=== PATIENT | male | born 1995 | race Hispanic/Latino ===

== ENCOUNTER 2021-09-27 09:43 | Emergency (ER) | payer OTHER ==
[~2021-09-27] VITALS: Ht 172.7 cm; Wt 104.3 kg
== END 2021-09-27 11:45 | disposition home or self-care (01) ==
LOC: FSED 10:18
DX: M79.641 Pain in right hand (principal); S60.221A Contusion of right hand, initial encounter; W23.1XXA Caught, crushed, jammed, or pinched between stationary objects, initial encounter; Y92.89 Other specified places as the place of occurrence of the external cause
CPT/HCPCS: 99283

== ENCOUNTER 2023-12-11 22:54 | Emergency (ER) | payer SELFPAY ==
[~2023-12-11] VITALS: Ht 175.3 cm; Wt 119.7 kg
[~2023-12-11 22:54] MED LIST: DOXYCYCLINE HY100 MG PO
[2023-12-11 23:22] VITALS: PULSE 99; RESP 20; TEMP 98.2
[2023-12-11] MEDS ORDERED: IBUPROFEN200 MG PO (23:31)
[2023-12-11] MEDS ORDERED: DOXYCYCLINE HY100 MG PO (23:31)
[2023-12-11] MEDS ORDERED: MUPIROCIN22 GM TOP (23:31)
[2023-12-12 00:22] VITALS: BP 129/62; PULSE 74; RESP 18; TEMP 98; O2SAT 99
== END 2023-12-12 00:10 | disposition home or self-care (01) ==
LOC: FSED 23:01
DX: L03.115 Cellulitis of right lower limb (principal)
CPT/HCPCS: 99283

== ENCOUNTER 2024-04-12 08:13 | Emergency (ER) | payer SELFPAY ==
[~2024-04-12] VITALS: Ht 170.2 cm; Wt 123.4 kg
[~2024-04-12 08:13] MED LIST changes: +IBUPROFEN200 MG PO; +MUPIROCIN22 GM TOP
[2024-04-12] MEDS ORDERED: DOXYCYCLINE MO100 MG PO (08:52)
[2024-04-12 09:05] VITALS: PULSE 96; RESP 18; TEMP 98.4; O2SAT 97
== END 2024-04-12 09:05 | disposition home or self-care (01) ==
LOC: FSED 08:15
DX: M79.652 Pain in left thigh (principal); L02.416 Cutaneous abscess of left lower limb; F17.210 Nicotine dependence, cigarettes, uncomplicated
CPT/HCPCS: 99283